=== PATIENT | male | born 1960 | race African-American/Black ===

== ENCOUNTER 2017-02-14 21:45 | Inpatient (IN) | payer SELFPAY ==
[~2017-02-14] VITALS: Ht 180.3 cm; Wt 97.8 kg
[~2017-02-14 21:45] MED LIST: AMLO10 PO; ASPI1TAB69 PO; CLON0.2T PO; FURO1TAB60 PO; HYDR-3533 PO; METO-309 PO
[2017-02-14 21:49] VITALS: BP 219/122; PULSE 93; RESP 28; TEMP 98.8; O2SAT 89
[2017-02-14] MEDS ORDERED: ASPI-516 CHEW (21:59)
[2017-02-14 22:00] VITALS: O2SAT 95
[2017-02-14] MEDS ORDERED: SODIUM CHLORIDE 0.9% FLUSH 10 ML FLUSH IVF PRN (22:00)
[2017-02-14] MEDS ORDERED: RESP: ALBUTEROL 2.5 MG/IPRATROPIUM 0.5 MG NEB (SCH) INH ONE (22:00)
[2017-02-14 22:28] LABS: AUTOMATED NEUTROPHIL # 3.2 TH/MM3 (1.8-7.7); BASOPHIL % 0.8 % (0.0-2.0); EOSINOPHIL # 0.1 TH/MM3 (0-0.4); EOSINOPHIL % 2.2 % (0.0-4.0); HEMATOCRIT 42.3 % (39.0-51.0); HEMO FLAGS DIFF FINAL; LYMPH % 36.3 % (9.0-44.0); LYMPHOCYTE # 2.2 TH/MM3 (1.0-4.8); MEAN CORPUSCULAR HEMOGLOBIN 27.3 PG (27.0-34.0); MEAN CORPUSCULAR HGB CONC 32.9 % (32.0-36.0); MONO % 8.3 % (0.0-8.0); NEUT % 52.4 % (16.0-70.0); PLATELET COUNT 208 TH/MM3 (150-450); RED CELL DISTRIBUTION WIDTH 16.7 % (11.6-17.2)
--- NOTE | 2017-02-14 22:33 | RADRPT ---
EXAM DATE/TIME: 02/14/2017 22:23 [place] COMPARISON: CHEST SINGLE AP, December 31, 2015, 4:17. INDICATIONS : Short of breath. MEDICAL HISTORY : Cardiovascular disease. Hypercholesterolemia. SURGICAL HISTORY : None. ENCOUNTER: Initial ACUITY: 1 day PAIN SCORE: 0/10 LOCATION: Bilateral chest FINDINGS: A single view of the chest demonstrates cardiomegaly. Mild edema pattern. Small effusions. No pneumot horax. CONCLUSION: 1. Mild congestive heart failure pattern. No pneumothorax. Ed Lockwood MD on February 14, 2017 at 22:31 Board Certified Radiologist. This report was verified electronically.
[2017-02-14 22:36] LABS: APTT (PATIENT) 24.5 SEC (24.3-30.1); INTERNATIONAL NORMALIZED RATIO 1.1 RATIO; PROTHROMBIN TIME - PATIENT 10.7 SEC (9.8-11.6)
[2017-02-14 22:43] LABS: ALT (GPT) 29 U/L (12-78); ANION GAP 10 MEQ/L (5-15); AST (GOT) 53 U/L (15-37); BICARBONATE 19.9 MEQ/L (21.0-32.0); BLOOD UREA NITROGEN 27 MG/DL (7-18); CHLORIDE 109 MEQ/L (98-107); GLOMERULAR FILTRATION RATE 57 ML/MIN (>89); SODIUM (NA) 139 MEQ/L (136-145)
[2017-02-14 22:45] LABS: POTASSIUM 4.9 MEQ/L (3.5-5.1)
[2017-02-14] MEDS ORDERED: LABETALOL HCL 100 MG/20 ML VIAL IV PUSH ONE (22:45)
[2017-02-14 22:47] LABS: ALKALINE PHOSPHATASE 88 U/L (45-117); TOTAL BILIRUBIN ADULT 0.3 MG/DL (0.2-1.0)
[2017-02-14 22:53] VITALS: BP 192/115; PULSE 75; RESP 20; O2SAT 95
[2017-02-14] MEDS ORDERED: ASPIRIN 81 MG CHEW TAB CHEW ONE (23:00)
[2017-02-14] MEDS ORDERED: FUROSEMIDE 40 MG/4 ML VIAL IV PUSH ONE (23:00)
[2017-02-14] MEDS ORDERED: hydrALAZINE HCL 20 MG/ML VIAL IV PUSH ONE (23:00)
--- NOTE | 2017-02-14 23:22 | PD ---
HPI Chief Complaint: Respiratory Distress Time Seen by Provider: 21:55 Travel History International Travel<30 days: No Contact w/Intl Traveler<30days: No Traveled to known affect area: No History of Present Illness HPI Patient is a 57 year old male who comes in complaining of SOB. He has history of CHF, with an ejection fraction of 20-25%. He has not taken any of his medications in the past month. He says he is in the process of changing doctors. He says he has had a cough for the past few days and his symptoms have gradually worsened until he became unbearable today. He denies any chest pain. Denies fever or chills. He does not know what medications he was taking. PFSH Past Medical History Blood Disorders: No Anxiety: No Depression: No Heart Rhythm Problems: No Cancer: No Cardiovascular Problems: Yes High Cholesterol: Yes Chest Pain: No Congestive Heart Failure: No Endocrine: No Gastrointestinal Disorders: No Genitourinary: No Hypertension: Yes Immune Disorder: No Implanted Vascular Access Dvce: No Musculoskeletal: No Neurologic: No Psychiatric: No Reproductive: No Respiratory: No Immunizations Current: Yes Past Surgical History Other Surgery: Yes (middle finger to rt hand) Social History Alcohol Use: Yes (daily) Tobacco Use: Yes (1/2 ppd) Substance Use: Yes (marijuana) Allergies-Medications (Allergen,Severity, Reaction): Coded Allergies: prednisone (Unverified Allergy, Severe, 02/14/17) Reported Meds & Prescriptions Reported Meds & Active Scripts Active Lopressor (Metoprolol Tartrate) 50 Mg Tab 25 Mg PO BID Norvasc (Amlodipine Besylate) 10 Mg Tab 10 Mg PO DAILY Clonidine (Clonidine HCl) 0.2 Mg Tab 0.2 Mg PO BID Reported Aspirin 81 Mg Chew 81 Mg CHEW DAILY Review of Systems Except as stated in HPI: all other systems reviewed are Neg General / Constitutional: No: Fever, Chills HENT: No: Headaches, Lightheadedness Cardiovascular: No: Chest Pain or Discomfort Respiratory: Positive: Cough, Shortness of Breath Gastrointestinal: No: Nausea, Vomiting Musculoskeletal: No: Myalgias, Edema Skin: No Rash, No Change in Pigmentation Neurologic: No: Weakness, Dizziness Physical Exam Narrative GENERAL: Awake and alert, in no acute distress. Speaking in full sentences. SKIN: Focused skin assessment warm/dry. HEAD: Atraumatic. Normocephalic. EYES: Pupils equal and round. No scleral icterus. ENT: Mucous membranes pink and moist. NECK: Trachea midline. No JVD. CARDIOVASCULAR: Regular rate and rhythm. No murmur appreciated. RESPIRATORY: No accessory muscle use. Decreased breath sounds throughout both lungs. Breath sounds equal bilaterally. GASTROINTESTINAL: Abdomen soft, non-tender, nondistended. MUSCULOSKELETAL: No obvious deformities. No clubbing. No cyanosis. No edema. NEUROLOGICAL: Awake and alert. No obvious cranial nerve deficits. Motor grossly within normal limits. Normal speech. PSYCHIATRIC: Appropriate mood and affect; insight and judgment normal. Data Data Last Documented VS Vital Signs Date Time Temp Pulse Resp B/P (MAP) Pulse Ox O2 Delivery O2 Flow Rate FiO2 02/14/17 22:53 75 20 192/115 (140) 95 Nasal Cannula 5.00 02/14/17 21:49 98.8 Orders Orders Complete Blood Count With Diff (02/14/17 21:57) Comprehensive Metabolic Panel (02/14/17 21:57) B-Type Natriuretic Peptide (02/14/17 21:57) Act Partial Throm Time (Ptt) (02/14/17 21:57) Prothrombin Time / Inr (Pt) (02/14/17 21:57) Troponin I (02/14/17 21:57) Iv Access Insert/Monitor (02/14/17 21:57) Ecg Monitoring (02/14/17 21:57) Oximetry (02/14/17 21:57) Oxygen Administration (02/14/17 21:57) Chest, Single Ap (02/14/17 21:57) Sodium Chloride 0.9% Flush (Ns Flush) (02/14/17 22:00) Albuterol-Ipratropium Neb (Duoneb Neb) (02/14/17 22:00) Electrocardiogram (02/14/17 21:51) Labetalol Inj (Trandate Inj) (02/14/17 22:45) Aspirin Chew (Aspirin Chew) (02/14/17 23:00) Furosemide Inj (Lasix Inj) (02/14/17 23:00) Hydralazine Inj (Apresoline Inj) (02/14/17 23:00) Labs Laboratory Tests Test 02/14/17 22:10 White Blood Count 6.0 TH/MM3 Red Blood Count 5.10 MIL/MM3 Hemoglobin 13.9 GM/DL Hematocrit 42.3 % Mean Corpuscular Volume 83.0 FL Mean Corpuscular Hemoglobin 27.3 PG Mean Corpuscular Hemoglobin Concent 32.9 % Red Cell Distribution Width 16.7 % Platelet Count 208 TH/MM3 Mean Platelet Volume 8.6 FL Neutrophils (%) (Auto) 52.4 % Lymphocytes (%) (Auto) 36.3 % Monocytes (%) (Auto) 8.3 % Eosinophils (%) (Auto) 2.2 % Basophils (%) (Auto) 0.8 % Neutrophils # (Auto) 3.2 TH/MM3 Lymphocytes # (Auto) 2.2 TH/MM3 Monocytes # (Auto) 0.5 TH/MM3 Eosinophils # (Auto) 0.1 TH/MM3 Basophils # (Auto) 0.0 TH/MM3 CBC Comment DIFF FINAL Differential Comment Prothrombin Time 10.7 SEC Prothromb Time International Ratio 1.1 RATIO Activated Partial Thromboplast Time 24.5 SEC Blood Urea Nitrogen 27 MG/DL Creatinine 1.53 MG/DL Random Glucose 83 MG/DL Total Protein 7.8 GM/DL Albumin 3.3 GM/DL Calcium Level 8.4 MG/DL Alkaline Phosphatase 88 U/L Aspartate Amino Transf (AST/SGOT) 53 U/L Alanine Aminotransferase (ALT/SGPT) 29 U/L Total Bilirubin 0.3 MG/DL Sodium Level 139 MEQ/L Potassium Level 4.9 MEQ/L Chloride Level 109 MEQ/L Carbon Dioxide Level 19.9 MEQ/L Anion Gap 10 MEQ/L Estimat Glomerular Filtration Rate 57 ML/MIN Troponin I 0.12 NG/ML B-Type Natriuretic Peptide 231 PG/ML [facility] Medical Decision Making Medical Screen Exam Complete: Yes Emergency Medical Condition: Yes Medical Record Reviewed: Yes Interpretation(s) ECG shows normal sinus rhythm at 90, no ST elevation or depression evidence of LVH. Differential Diagnosis CHF exacerbation versus ACS versus COPD exacerbation versus pneumonia Narrative Course Patient is a 57-year-old male who comes in complaining of shortness of breath. Patient was placed on CPAP by EMS due to decreased breath sounds. He did receive one albuterol treatment from them as well. CPAP was removed on arrival , patient is in no respiratory distress. He is maintained on a nasal cannula. Given 1 DuoNeb with improvement of his breath sounds. Crackles can now be heard at both bases. IV established, labs sent. Labs show a troponin of 0.12. His previous visits, it has been around this level. He is given an aspirin. BNP is also elevated. Chest x-ray shows evidence of congestive heart failure. Patient given labetalol for his blood pressure, given a dose of Lasix. He'll be admitted for further management. Diagnosis Primary Impression: Congestive heart failure (CHF) Qualified Codes: I50.23 - Acute on chronic systolic (congestive) heart failure Additional Impressions: Shortness of breath Hypertensive emergency Admitting Information Admitting Physician Requests: Admit Shakira Ramirez MD Feb 14, 2017 23:22
[2017-02-14] MEDS ORDERED: NALOXONE HCL 0.4 MG/ML AMP IV PUSH PRN (23:30)
[2017-02-14] MEDS ORDERED: ACETAMINOPHEN 325 MG TAB PO PRN (23:30)
[2017-02-14] MEDS ORDERED: SODIUM CHLORIDE 0.9% FLUSH 10 ML FLUSH IV FLUSH PRN (23:30)
[2017-02-14] MEDS ORDERED: ONDANSETRON HCL 4 MG/2 ML VIAL IVP PRN (23:30)
[2017-02-14] MEDS ORDERED: RESP: ALBUTEROL 2.5 MG/IPRATROPIUM 0.5 MG NEB (PRN) NEB (23:45)
[2017-02-14] MEDS: HEPARIN SODIUM - SQ 10,000 UNITS/ML VIAL SQ SCH (23:57)
[2017-02-15] VITALS (20 sets, daily range): BP systolic 126–219; BP diastolic 74–107; PULSE 51–103; RESP 16–25; TEMP 97.2–97.7; O2SAT 94–100
[2017-02-15] MEDS ORDERED: LORazepam 1 MG TAB PO PRN (00:30)
[2017-02-15] MEDS ORDERED: LORazepam 2 MG TAB PO PRN (00:30)
[2017-02-15] MEDS ORDERED: HALOPERIDOL LACTATE 5 MG/ML AMP IM PRN (00:30)
[2017-02-15] MEDS ORDERED: LORazepam 2 MG/ML VIAL IV PUSH PRN ×4 (00:30)
[2017-02-15] MEDS ORDERED: FLUMAZENIL 0.5 MG/5 ML VIAL IV PUSH PRN (00:30)
--- NOTE | 2017-02-15 00:49 | HHI.HP ---
HPI Service [facility] Primary Care Physician No Primary Care Physician Admission Diagnosis CHF, elevated troponin Diagnoses: Travel History International Travel<30 Days: No Contact w/Intl Traveler <30 Da: No Traveled to Known Affected Are: No History of Present Illness 57-year-old male with a past medical history significant for hypertension and CHF (last echo done on 12/31/15 showed an EF of 20-25%) presents to the emergency department with a three-day history of cough and increasing shortness of breath. The patient reports the cough is nonproductive. He denies fever/ chills. States he is having difficulty breathing and felt as though he was gasping for air. Currently requiring 2 L nasal cannula. Noted to be hypertensive in the emergency department to 219/122. Lab values significant for a creatinine of 1.53 which is baseline for the patient, elevated troponin of 0.12 which is also baseline and a BNP of 231. The patient denies any chest pain. Review of Systems Denies fever or chills Denies blurry vision, otorrhea, rhinorrhea Denies sore throat and cough No chest pain, palpitations, positive shortness of breath No abdominal pain Denies constipation/diarrhea/nausea/vomiting Denies muscle pain/weakness No rashes Past Family Social History Past Medical History Hypertension CHF Past Surgical History None Reported Medications Reported Meds & Active Scripts Active Lopressor (Metoprolol Tartrate) 50 Mg Tab 25 Mg PO BID Norvasc (Amlodipine Besylate) 10 Mg Tab 10 Mg PO DAILY Clonidine (Clonidine HCl) 0.2 Mg Tab 0.2 Mg PO BID Reported Aspirin 81 Mg Chew 81 Mg CHEW DAILY Allergies: Coded Allergies: prednisone (Unverified Allergy, Severe, 02/14/17) Family History Mother with CAD Social History Quit smoking 3 days ago. States he has smoked since the age of 15. Drinks approximately 2 beers per day. Denies marijuana and illicit drugs. Physical Exam Vital Signs Vital Signs Date Time Temp Pulse Resp B/P (MAP) Pulse Ox O2 Delivery O2 Flow Rate FiO2 02/15/17 00:08 64 20 219/107 (144) 02/14/17 22:53 75 20 192/115 (140) 95 Nasal Cannula 5.00 02/14/17 22:00 95 Room Air 02/14/17 22:00 95 Room Air 02/14/17 21:49 98.8 93 28 219/122 (154) 89 Physical Exam GENERAL: male sitting up in bed SKIN: No rashes, ecchymoses or lesions. Cool and dry. HEAD: Atraumatic. Normocephalic. No temporal or scalp tenderness. EYES: Pupils equal round and reactive. Extraocular motions intact. No scleral icterus. No injection or drainage. ENT: Nose without bleeding, purulent drainage or septal hematoma. Throat without erythema, tonsillar hypertrophy or exudate. Uvula midline. Airway patent. NECK: Trachea midline. No JVD or lymphadenopathy. Supple, nontender, no meningeal signs. CARDIOVASCULAR: Regular rate and rhythm without murmurs, gallops, or rubs. RESPIRATORY: Bilateral crackles. No wheezes, rales, or rhonchi. GASTROINTESTINAL: Abdomen soft, non-tender, nondistended. No hepato-splenomegaly , or palpable masses. No guarding. MUSCULOSKELETAL: Extremities without clubbing, cyanosis, or edema. No joint tenderness, effusion, or edema noted. No calf tenderness. NEUROLOGICAL: Awake and alert. Cranial nerves II through XII intact. Motor and sensory grossly within normal limits. Normal speech. Laboratory Laboratory Tests Test 02/14/17 22:10 White Blood Count 6.0 Red Blood Count 5.10 Hemoglobin 13.9 Hematocrit 42.3 Mean Corpuscular Volume 83.0 Mean Corpuscular Hemoglobin 27.3 Mean Corpuscular Hemoglobin Concent 32.9 Red Cell Distribution Width 16.7 Platelet Count 208 Mean Platelet Volume 8.6 Neutrophils (%) (Auto) 52.4 Lymphocytes (%) (Auto) 36.3 Monocytes (%) (Auto) 8.3 Eosinophils (%) (Auto) 2.2 Basophils (%) (Auto) 0.8 Neutrophils # (Auto) 3.2 Lymphocytes # (Auto) 2.2 Monocytes # (Auto) 0.5 Eosinophils # (Auto) 0.1 Basophils # (Auto) 0.0 CBC Comment DIFF FINAL Differential Comment Prothrombin Time 10.7 Prothromb Time International Ratio 1.1 Activated Partial Thromboplast Time 24.5 Blood Urea Nitrogen 27 Creatinine 1.53 Random Glucose 83 Total Protein 7.8 Albumin 3.3 Calcium Level 8.4 Alkaline Phosphatase 88 Aspartate Amino Transf (AST/SGOT) 53 Alanine Aminotransferase (ALT/SGPT) 29 Total Bilirubin 0.3 Sodium Level 139 Potassium Level 4.9 Chloride Level 109 Carbon Dioxide Level 19.9 Anion Gap 10 Estimat Glomerular Filtration Rate 57 Troponin I 0.12 B-Type Natriuretic Peptide 231 Result Diagram: 02/14/17220902/14/172209 Caprini VTE Risk Assessment Caprini VTE Risk Assessment: No/Low Risk (score <= 1) Caprini Risk Assessment Model Point Value = 1 Point Value = 2 Point Value = 3 Point Value = 5 Age 41-60 Minor surgery BMI > 25 kg/m2 Swollen legs Varicose veins or History of unexplained or recurrent spontaneous Oral contraceptives or hormone replacement Sepsis (< 1 month) Serious lung disease, including pneumonia (< 1 month) Abnormal pulmonary function Acute myocardial infarction Congestive heart failure (< 1 month) History of inflammatory bowel disease Medical patient at bed rest Age 61-74 Arthroscopic surgery Major open surgery (> 45 min) Laparoscopic surgery (> 45 min) Malignancy Confined to bed (> 72 hours) Immobilizing plaster cast Central venous access Age >= 75 History of VTE Family history of VTE Factor V Leiden Prothrombin [id number] Lupus anticoagulant Anticardiolipin antibodies Elevated serum homocysteine Heparin-induced thrombocytopenia Other congenital or acquired thrombophilia Stroke (< 1 month) Elective arthroplasty Hip, pelvis, or leg fracture Acute spinal cord injury (< 1 month) Prophylaxis Regimen Total Risk Factor Score Risk Level Prophylaxis Regimen 0-1 Low Early ambulation 2 Moderate Order ONE of the following: *Sequential Compression Device (SCD) *Heparin 5000 units SQ BID 3-4 Higher Order ONE of the following medications: *Heparin 5000 units SQ TID *Enoxaparin/Lovenox 40 mg SQ daily (WT < 150 kg, CrCl > 30 mL/min) *Enoxaparin/Lovenox 30 mg SQ daily (WT < 150 kg, CrCl > 10-29 mL/min) *Enoxaparin/Lovenox 30 mg SQ BID (WT < 150 kg, CrCl > 30 mL/min) AND/OR *Sequential Compression Device (SCD) 5 or more Highest Order ONE of the following medications: *Heparin 5000 units SQ TID (Preferred with Epidurals) *Enoxaparin/Lovenox 40 mg SQ daily (WT < 150 kg, CrCl > 30 mL/min) *Enoxaparin/Lovenox 30 mg SQ daily (WT < 150 kg, CrCl > 10-29 mL/min) *Enoxaparin/Lovenox 30 mg SQ BID (WT < 150 kg, CrCl > 30 mL/min) AND *Sequential Compression Device (SCD) Assessment and Plan Assessment and Plan Assessment/plan: 1. CHF exacerbation BNP 231 Chest x-ray shows pulmonary edema with small bilateral effusions ECHO 12/19 shows EF of 20-25% Lasix IV Supplemental O2 Patient has been out of his home medications for a month, just established with new provider yesterday 2. Elevated troponin 0.12, baseline EKG shows sinus rhythm without ST elevation/depression Serial EKG/troponin to r/o ACS 3. CKD Cr 1.53, baseline Monitor renal function 4. Hypertensive urgency S/p Hydralazine, Labetalol and Clonidine Restart home medications Monitor and adjust prn 5. Alcohol abuse Thiamine/folate/multivitamins CIWA protocol Cessation counseling provided FEN Heart healthy diet Monitor electrolytes Heparin Case discussed with ER physician at length Physician Certification 2 Midnight Certification Type: Admission for Inpatient Services Order for Inpatient Services The services are ordered in accordance with Medicare regulations or non- Medicare payer requirements, as applicable. In the case of services not specified as inpatient-only, they are appropriately provided as inpatient services in accordance with the 2-midnight benchmark. Estimated LOS (days): 2 2 days is the estimated time the patient will need to remain in the hospital, assuming treatment plan goals are met and no additional complications. Post-Hospital Plan: Not yet determined Sasha Xiong MD Feb 15, 2017 00:49
[2017-02-15] MEDS ORDERED: cloNIDine HCL 0.2 MG TAB PO ONE (01:15)
[2017-02-15] MEDS: RESP: ALBUTEROL 2.5 MG/IPRATROPIUM 0.5 MG NEB (SCH) NEB ×4 (03:07→21:21)
[2017-02-15 04:28] LABS: AUTOMATED NEUTROPHIL # 3.6 TH/MM3 (1.8-7.7); BASOPHIL % 0.7 % (0.0-2.0); EOSINOPHIL # 0.1 TH/MM3 (0-0.4); EOSINOPHIL % 1.2 % (0.0-4.0); HEMATOCRIT 39.7 % (39.0-51.0); HEMO FLAGS DIFF FINAL; MEAN CELL VOLUME 82.8 FL (80.0-100.0); MEAN CORPUSCULAR HEMOGLOBIN 27.5 PG (27.0-34.0); MEAN CORPUSCULAR HGB CONC 33.2 % (32.0-36.0); MONO % 10.1 % (0.0-8.0); PLATELET COUNT 206 TH/MM3 (150-450); RED CELL DISTRIBUTION WIDTH 16.2 % (11.6-17.2); WHITE BLOOD COUNT 6.4 TH/MM3 (4.0-11.0)
[2017-02-15 05:00] LABS: ANION GAP 9 MEQ/L (5-15); BICARBONATE 21.8 MEQ/L (21.0-32.0); BLOOD UREA NITROGEN 24 MG/DL (7-18); CHLORIDE 111 MEQ/L (98-107); GLOMERULAR FILTRATION RATE 62 ML/MIN (>89); POTASSIUM 3.7 MEQ/L (3.5-5.1); SODIUM (NA) 142 MEQ/L (136-145)
[2017-02-15 05:15] LABS: CREATINE KINASE 1354 U/L (39-308)
[2017-02-15 05:30] LABS: CKMB 3.2 NG/ML (0.5-3.6)
[2017-02-15] MEDS: FOLIC ACID 1 MG TAB PO SCH (08:45)
[2017-02-15] MEDS: THIAMINE HCL 100 MG TAB PO SCH (08:45)
[2017-02-15] MEDS: cloNIDine HCL 0.2 MG TAB PO SCH ×2 (08:45→20:05)
[2017-02-15] MEDS: HEPARIN SODIUM - SQ 10,000 UNITS/ML VIAL SQ SCH ×2 (08:46→16:23)
[2017-02-15] MEDS: SODIUM CHLORIDE 0.9% FLUSH 10 ML FLUSH IV FLUSH SCH ×2 (08:46→20:05)
[2017-02-15] MEDS: ASPIRIN 81 MG CHEW TAB CHEW SCH (08:46)
[2017-02-15] MEDS: METOPROLOL TARTRATE 25 MG TAB PO SCH ×2 (09:00→20:05)
[2017-02-15] MEDS: MULTIVITAMINS/MINERALS THERAPEUTIC TAB PO SCH (10:42)
[2017-02-15 15:00] LABS: CKMB 3.1 NG/ML (0.5-3.6)
--- NOTE | 2017-02-15 15:07 | EKG ---
Date Performed: 02/15/2017 Time Performed: 04:12:05 PTAGE: 57 years EKG: SINUS BRADYCARDIA WITH OCCASIONAL SUPRAVENTRICULAR PREMATURE COMPLEXES LEFT ATRIAL ENLARGEM ENT LEFT VENTRICULAR HYPERTROPHY AND ST-T CHANGE ABNORMAL ECG PREVIOUS TRACING : 02/14/2017 21.51 DOCTOR: Kevin Phan Interpretating Date/Time 02/15/2017 15:06:55
--- NOTE | 2017-02-15 15:27 | EKG ---
Date Performed: 02/14/2017 Time Performed: 21:51:54 PTAGE: 57 years EKG: Sinus rhythm LEFT ATRIAL ENLARGEMENT LEFT VENTRICULAR HYPERTROPHY AND ST-T CHANGE ABNORMAL ECG PREVIOUS TRACING : 12/30/2015 18.13 DOCTOR: Kevin Phan Interpretating Date/Time 02/15/2017 15:26:45
[2017-02-16] VITALS (7 sets, daily range): BP systolic 128–147; BP diastolic 72–86; PULSE 52–62; RESP 16–18; TEMP 97–97.9; O2SAT 97–98
[2017-02-16] MEDS: RESP: ALBUTEROL 2.5 MG/IPRATROPIUM 0.5 MG NEB (SCH) NEB ×2 (05:15→09:15)
[2017-02-16] MEDS: MULTIVITAMINS/MINERALS THERAPEUTIC TAB PO SCH (08:05)
[2017-02-16] MEDS: THIAMINE HCL 100 MG TAB PO SCH (08:05)
[2017-02-16] MEDS: HEPARIN SODIUM - SQ 10,000 UNITS/ML VIAL SQ SCH ×2 (08:05)
[2017-02-16] MEDS: FOLIC ACID 1 MG TAB PO SCH (08:05)
[2017-02-16] MEDS: cloNIDine HCL 0.2 MG TAB PO SCH (08:06)
[2017-02-16] MEDS: SODIUM CHLORIDE 0.9% FLUSH 10 ML FLUSH IV FLUSH SCH (08:06)
[2017-02-16] MEDS: ASPIRIN 81 MG CHEW TAB CHEW SCH (08:07)
[2017-02-16] MEDS: METOPROLOL TARTRATE 25 MG TAB PO SCH (08:07)
[2017-02-16] MEDS ORDERED: CLON0.2T PO (12:03)
[2017-02-16] MEDS ORDERED: AMLO10 PO (12:03)
[2017-02-16] MEDS ORDERED: METO-309 PO (12:03)
[2017-02-16] MEDS ORDERED: ASPI-516 CHEW (12:03)
[2017-02-16] MEDS ORDERED: LISI2.5T3 PO (12:04)
--- NOTE | 2017-02-16 13:44 | HHI.DCPOC ---
Discharge Care Plan Diagnosis: (1) Congestive heart failure (CHF) (2) Shortness of breath (3) Hypertension Goals to Promote Your Health * To prevent worsening of your condition and complications * To maintain your health at the optimal level Directions to Meet Your Goals Take your medications as prescribed Follow your dietary instruction Follow activity as directed Keep your appointments as scheduled Take your immunizations and boosters as scheduled If your symptoms worsen call your PCP, if no PCP go to Urgent Care Center or Emergency Room Smoking is Dangerous to Your Health. Avoid second hand smoke Call the 24-hour hour crisis hotline for domestic abuse at Pio Priest MD Feb 16, 2017 13:44
--- NOTE | 2017-02-16 13:45 | HHI.PR ---
Objective Vitals Vital Signs Date Time Temp Pulse Resp B/P (MAP) Pulse Ox O2 Delivery O2 Flow Rate FiO2 02/16/17 12:05 59 02/16/17 12:00 98 Room Air 02/16/17 12:00 97.0 55 18 128/72 (90) 98 02/16/17 09:16 97 02/16/17 08:00 97 Room Air 02/16/17 08:00 97.9 52 18 147/82 (103) 97 02/16/17 07:58 62 02/16/17 04:44 53 02/16/17 03:27 97.7 54 16 134/86 (102) 97 02/15/17 23:52 52 02/15/17 23:30 97.7 54 16 126/80 (95) 100 02/15/17 21:24 98 02/15/17 20:09 Room Air 02/15/17 19:46 55 02/15/17 19:30 97.5 62 16 133/94 (107) 98 02/15/17 15:47 55 02/15/17 14:01 97.2 51 18 135/81 (99) 100 02/15/17 13:58 I/O 02/15/17 02/15/17 02/15/17 02/16/17 02/16/17 02/16/17 07:00 15:00 23:00 07:00 15:00 23:00 Intake Total 100 ml 300 ml 360 ml Output Total 650 ml 700 ml Balance 100 ml 300 ml -290 ml -700 ml Intake Oral 100 ml 300 ml 360 ml Output Urine Total 650 ml 700 ml # Voids 1 # Bowel Movements 0 Result Diagram: 02/15/1741102/15/17411 Pio Priest MD Feb 16, 2017 13:45
== END 2017-02-16 14:12 | disposition home or self-care (01) | DRG 291 ==
LOC: NEPE 21:45 → NEDA 23:29 → N04B 02-15 14:01
PROVIDERS: ADMIT Family Medicine; ATTEND Family Medicine
DX: I13.0 Hypertensive heart and chronic kidney disease with heart failure and stage 1 through stage 4 chronic kidney disease, or unspecified chronic kidney disease (principal); I50.23 Acute on chronic systolic (congestive) heart failure; F10.10 Alcohol abuse, uncomplicated; I16.1 Hypertensive emergency; E78.00 Pure hypercholesterolemia, unspecified; N18.9 Chronic kidney disease, unspecified; R74.8 Abnormal levels of other serum enzymes; F12.90 Cannabis use, unspecified, uncomplicated; F17.200 Nicotine dependence, unspecified, uncomplicated; Y90.9 Presence of alcohol in blood, level not specified
CPT/HCPCS: 71010; 80048; 80053; 82550; 82552; 83880; 84484; 85025; 85610; 85730; 93005; 94640; 94664; 96374; 96375; J1644; J1940